=== PATIENT | female | born 1985 | race Caucasian/White ===

== ENCOUNTER 2022-02-16 23:03 | Observation (INO) ==
[2022-02-16] MEDS ORDERED: IOPAMIDOL 100 ML BOTTLE IV ONE (23:04)
[2022-02-16] MEDS ORDERED: 0.9 % SODIUM CHLORIDE 1,000 ML IV ONE (23:06)
--- NOTE | 2022-02-16 23:13 | Emergency Department Note ---
Female Urogenital HPI General Chief complaint: Flank Pain Stated complaint: flank pain Time Seen by Provider: 02/16/22 23:06 Source: patient Mode of arrival: ambulatory Limitations: no limitations History of Present Illness HPI Narrative: Narrative: Patient presents ED with complaints of left flank pain abdomen worsening x4 days. Patient rates pain 8/10. She reports associated fever chills and pain rating to her left groin area. Patient denies dysuria, hematuria, urinary frequency, diarrhea, constipation, melena, medic easier, shortness of breath, cough, body aches, abdominal pain. She denies any [id number] medication. She reports a history of kidney stones. She denies any relieving or aggravating factors. Related Data Home Medications Medication Instructions Recorded Confirmed Elvinsin 09/04/21 Allergies Allergy/AdvReac Type Severity Reaction Status Date / Time No Known Drug Allergies Allergy Verified 08/08/21 08:32 Review of Systems ROS ROS Narrative: Narrative: All systems ED: reviewed and negative except as stated. [facility] Narrative Patient History Narrative: Narrative: Medical/Surgical/Family History All Active Problems (Updated 02/17/22 @ 00:33 by Bebo Cobos DO) Vaginal bleeding (Acute) Menometrorrhagia (Acute) UTI (urinary tract infection) (Acute) Viral upper respiratory tract infection (Acute) Asthma (Acute) (Acute) Low back strain (Acute) Left against medical advice (Acute) Acute respiratory infection (Acute) Head injury, acute, without loss of consciousness (Acute) MRSA cellulitis (Acute) Acute flank pain (Acute) state, incidental (Acute) Flu (Acute) Acute hypokalemia (Acute) Sepsis (Acute) Pyelonephritis (Acute) Medical History (Updated 02/17/22 @ 00:33 by Bebo Cobos DO) Menometrorrhagia Vaginal bleeding Social History Smoking Status: Former smoker Exam Narrative Narrative: Narrative: General Limitations: no limitations General appearance: Present alert Respiratory Respiratory: Present normal lung sounds bilaterally; Absent respiratory distress Cardiovascular Cardiovascular: Present regular rate and normal rhythm Adbominal Abdominal: Present soft and tenderness (left llq) Back Back: Present CVA tenderness (L); Absent CVA tenderness (R) Neurological Neurological: Present oriented X3 and normal gait Psychiatric Psychiatric: Present normal affect and normal mood Skin Skin: Present warm (WNL), dry and intact Course Course Course Narrative: Patient was evaluated for complaints of left. Urine was negative. UA was obtained that showed that she had a pretty significant UTI. Patient's pulse was elevated at 93 and she also had a fever. Labs also she had elevated white cell count. Lactic acid was within normal limits. Patient does meet sepsis criteria. 2 bags of IV fluids Rocephin. Labs also show that she was hypokalemic. Patient does meet. Case was discussed with hospitalist who has agreed to admit the patient. Consultations Consultation #1: Case discussed with hospitalist who is graciously accepted patient for admission with sepsis secondary to pyelonephritis Time: 12:40 Vital Signs Vital signs: Vital Signs Temperature 100.6 F H 02/16/22 23:04 Pulse Rate 96 H 02/16/22 23:04 Respiratory Rate 17 02/16/22 23:04 Blood Pressure 104/70 02/16/22 23:04 Pulse Oximetry (%) 96 02/16/22 23:04 Temperature 100.6 F H 02/16/22 23:04 Pulse Rate 93 H 02/17/22 00:25 Respiratory Rate 17 02/16/22 23:04 Blood Pressure 115/62 02/16/22 23:31 Pulse Oximetry (%) 97 02/17/22 00:25 MDM MDM Narrative Medical decision making narrative: Narrative: Differential Diagnosis Differential Diagnosis: kidney stones, pyelonephritis, UTI Lab Data Lab results reviewed: Yes I reviewed the patient's lab results. Result diagrams: 02/16/22 23:20 02/16/22 23:20 Labs: Lab Results 02/16/22 02/16/22 02/16/22 Range/Units 23:18 23:20 23:20 WBC 14.8 H (4.5-11.0) K/mcL RBC 4.30 (3.59-5.38) M/mcL Hgb 11.1 L (11.2-15.7) g/dL Hct 36.3 (34.1-44.9) % POC Hct (36-48) MCV 84.4 (80.0-100.0) fL MCH 25.8 L (26.0-34.0) pg MCHC 30.6 L (31.0-36.0) g/dL RDW 14.6 H (11.5-14.5) % Plt Count 210 (140-440) K/mcL MPV 9.7 (7.4-10.4) fL Neut % (Auto) 90.1 H (38.0-78.0) % Lymph % (Auto) 3.4 L (15.5-49.0) % [place] % (Auto) 6.2 (1.0-12.0) % Eos % (Auto) 0.1 (0.0-7.0) % Baso % (Auto) 0.2 (0.0-2.0) % Lymph # (Auto) 0.50 L (1.50-4.80) K/mcL [place] # (Auto) 0.92 H (0.10-0.90) K/mcL Eos # (Auto) 0.01 (0.00-0.70) K/mcL Baso # (Auto) 0.03 (0.00-0.30) K/mcL Absolute Neutrophils 13.31 H (1.80-8.00) K/mcL POC Sodium (133-145) Sodium 133 (133-145) mmol/L POC Potassium (3.3-5.1) Potassium 3.1 L (3.3-5.1) mmol/L POC Chloride (96-108) Chloride 99 (96-108) mmol/L Carbon Dioxide 24 (22-30) mmol/L POC Total CO2 (22-30) Anion Gap 10.0 (8.0-16.0) POC BUN (6-20) BUN 13 (6-20) mg/dL Creatinine 0.8 (0.6-1.1) mg/dL POC Creatinine (0.6-1.2) GFR Calculation 94 Glucose 129 H (70-105) mg/dL POC Glucose (70-105) Calcium 8.7 (8.6-10.4) mg/dL POC WB Ioniz Calcium (1.16-1.32) Total Bilirubin 0.4 (0.1-1.0) mg/dL AST 20 (<32) U/L ALT 14 (<40) U/L Alkaline Phosphatase 95 (39-117) U/L Total Protein 6.7 (5.9-8.4) gm/dL Albumin 3.5 (3.2-5.2) gm/dL Globulin 3.2 (2.2-3.7) gm/dL Albumin/Globulin Ratio 1.1 (1.0-2.3) Urine Color Yellow Urine Appearance Cloudy A (Clear) Urine pH 5.0 (5.0-9.0) Ur Specific [place] 1.026 (1.000-1.035) Urine Protein 100 A (Negative) mg/dL Urine Glucose (UA) 50 A (Negative) mg/dL Urine Ketones 5 A (Negative) mg/dL Urine Occult Blood Negative (Negative) mg/dL Urine Nitrate Pos A (Negative) Urine Bilirubin Negative (Negative) mg/dL Urine Urobilinogen Negative mg/dL Ur Leukocyte Esterase 500 A (Negative) /uL Urine RBC 7 H (0-3) /hpf Urine WBC > 182 H (0-4) /hpf Ur Squamous Epith Cells 4 (0-4) /hpf Urine Bacteria None (0) /hpf Urine Mucus Few A (None) /hpf Ur Culture Indicated? yes 02/16/22 Range/Units 23:28 WBC (4.5-11.0) K/mcL RBC (3.59-5.38) M/mcL Hgb (11.2-15.7) g/dL Hct (34.1-44.9) % POC Hct 36.0 (36-48) MCV (80.0-100.0) fL MCH (26.0-34.0) pg MCHC (31.0-36.0) g/dL RDW (11.5-14.5) % Plt Count (140-440) K/mcL MPV (7.4-10.4) fL Neut % (Auto) (38.0-78.0) % Lymph % (Auto) (15.5-49.0) % [place] % (Auto) (1.0-12.0) % Eos % (Auto) (0.0-7.0) % Baso % (Auto) (0.0-2.0) % Lymph # (Auto) (1.50-4.80) K/mcL [place] # (Auto) (0.10-0.90) K/mcL Eos # (Auto) (0.00-0.70) K/mcL Baso # (Auto) (0.00-0.30) K/mcL Absolute Neutrophils (1.80-8.00) K/mcL POC Sodium 138 (133-145) Sodium (133-145) mmol/L POC Potassium 3.1 L (3.3-5.1) Potassium (3.3-5.1) mmol/L POC Chloride 100 (96-108) Chloride (96-108) mmol/L Carbon Dioxide (22-30) mmol/L POC Total CO2 26.0 (22-30) Anion Gap (8.0-16.0) POC BUN 13 (6-20) BUN (6-20) mg/dL Creatinine (0.6-1.1) mg/dL POC Creatinine 0.9 (0.6-1.2) GFR Calculation Glucose (70-105) mg/dL POC Glucose 133 H (70-105) Calcium (8.6-10.4) mg/dL POC WB Ioniz Calcium 1.17 (1.16-1.32) Total Bilirubin (0.1-1.0) mg/dL AST (<32) U/L ALT (<40) U/L Alkaline Phosphatase (39-117) U/L Total Protein (5.9-8.4) gm/dL Albumin (3.2-5.2) gm/dL Globulin (2.2-3.7) gm/dL Albumin/Globulin Ratio (1.0-2.3) Urine Color Urine Appearance (Clear) Urine pH (5.0-9.0) Ur Specific [place] (1.000-1.035) Urine Protein (Negative) mg/dL Urine Glucose (UA) (Negative) mg/dL Urine Ketones (Negative) mg/dL Urine Occult Blood (Negative) mg/dL Urine Nitrate (Negative) Urine Bilirubin (Negative) mg/dL Urine Urobilinogen mg/dL Ur Leukocyte Esterase (Negative) /uL Urine RBC (0-3) /hpf Urine WBC (0-4) /hpf Ur Squamous Epith Cells (0-4) /hpf Urine Bacteria (0) /hpf Urine Mucus (None) /hpf Ur Culture Indicated? ED POC Tests ED POC Tests: HCG POC Results Negative Core Measures AMI Core Measures Followed: Yes Discharge Plan Patient/Caregiver Discharge Instructions Pt seen by SPACECRAFT SYSTEMS ENGINEER/PA only: No Clinical Impression: Sepsis, Acute hypokalemia, Pyelonephritis Activity: resume usual activities as tolerated Patient Disposition: Xfer As Inpt ([facility]) Condition: Good Follow up with: No,PCP [Primary Care Provider] - Prescriptions: No Action Robitussin 0RF
[2022-02-16] MEDS ORDERED: KETOROLAC 30 MG/ML VIAL IV ONE (23:28)
[2022-02-16 23:32] LABS: POC Calcium, Ionized 1.17 (1.16-1.32); POC Creatinine 0.9 (0.6-1.2); POC Potassium 3.1 (3.3-5.1)
[2022-02-17 00:02] LABS: Basophils # (Auto) 0.03 K/mcL (0.00-0.30); Basophils % (Auto) 0.2 % (0.0-2.0); Eosinophils # (Auto) 0.01 K/mcL (0.00-0.70); Eosinophils % (Auto) 0.1 % (0.0-7.0); Hematocrit 36.3 % (34.1-44.9); Hemoglobin 11.1 g/dL (11.2-15.7); Lymphocytes % (Auto) 3.4 % (15.5-49.0); Mean Cell Volume 84.4 fL (80.0-100.0); Mean Corpuscular HGB Conc 30.6 g/dL (31.0-36.0); Mean Platelet Volume 9.7 fL (7.4-10.4); Monocytes # (Auto) 0.92 K/mcL (0.10-0.90); Monocytes % (Auto) 6.2 % (1.0-12.0); Neutrophils % (Auto) 90.1 % (38.0-78.0); Platelet Count 210 K/mcL (140-440); Red Cell Distribution Width 14.6 % (11.5-14.5); WBC 14.8 K/mcL (4.5-11.0)
[2022-02-17 00:15] LABS: Appearance,Urine CLOUDY (Clear); Bilirubin,Urine Negative (Negative); Color,Urine Yellow; Culture Indicated,Urine yes; Glucose,Urine (UA) 50 mg/dL (Negative); Ketones,Urine 5 mg/dL (Negative); Leukocyte Esterase,Urine 500 /uL (Negative); Mucus,Urine FEW /hpf; Nitrate,Urine POS (Negative); Protein,Urine 100 mg/dL (Negative); Specific Gravity,Urine 1.026 (1.000-1.035); Urine Blood Negative (Negative); Urine RBC 7 /hpf (0-3); Urine Squamous Epithelial Cell 4 /hpf (0-4); Urine WBC > 182 /hpf (0-4); Urobilinogen,Urine Negative
[2022-02-17] MEDS ORDERED: cefTRIAXone 2 GM in DEXTROSE 5% IN WATER 50 ML IV ONE (00:21)
[2022-02-17] MEDS ORDERED: ONDANSETRON 4 MG/2 ML VIAL IV ONE (00:22)
[2022-02-17] MEDS ORDERED: fentaNYL 100 MCG/2 ML VIAL IV ONE (00:26)
[2022-02-17] MEDS ORDERED: 0.9 % SODIUM CHLORIDE 1,000 ML IV ONE (00:28)
[2022-02-17 00:31] LABS: ALT/SGPT 14 U/L (<40); AST/SGOT 20 U/L (<32); Albumin 3.5 gm/dL (3.2-5.2); Albumin/Globulin Ratio 1.1 (1.0-2.3); Alkaline Phosphatase 95 U/L (39-117); Bilirubin,Total 0.4 mg/dL (0.1-1.0); Blood Urea Nitrogen 13 mg/dL (6-20); Calcium 8.7 mg/dL (8.6-10.4); Carbon Dioxide 24 mmol/L (22-30); Chloride 99 mmol/L (96-108); Globulin 3.2 gm/dL (2.2-3.7); Glomerular Filtration Rate 94; Glucose 129 mg/dL (70-105)
[2022-02-17] MEDS ORDERED: NALOXONE HCL 0.4 MG/ML VIAL IV PRN (00:42)
[2022-02-17] MEDS ORDERED: ACETAMINOPHEN 325 MG TABLET PO PRN (00:42)
[2022-02-17] MEDS: morphine 2 MG/ML VIAL IV PRN ×5 (02:02→23:30)
[2022-02-17] MEDS: ONDANSETRON 4 MG/2 ML VIAL IV PRN ×2 (02:03→16:54)
[2022-02-17] MEDS: 0.9 % SODIUM CHLORIDE 1,000 ML IV SCH ×3 (03:12→20:59)
--- NOTE | 2022-02-17 03:28 | Cat Scan Report ---
CLINICAL INFORMATION: Left flank pain COMPARISON: None. TECHNIQUE: Following enteric contrast, 80 cc of Isovue-370 were injected intravenously, and 60 seconds later, 0.625 mm helical slices were obtained from the mid heart through the subtrochanteric regions. Following reconstruction, 2.5 mm sagittal, coronal and axial reformatted images were processed and reviewed at bone, lung and soft tissue windows. Five minutes later, 0.625 mm helical slices were obtained from the mid heart through the kidneys and viewed at soft tissue windows.The exam was performed using radiation dose optimization techniques including, but not limited to, automated exposure control, adjustment of the mA and/or kV according to patient size and use of iterative reconstruction technique. FINDINGS: The lung bases are clear. No effusions. The visualized heart is grossly normal. Abdominal images show the gallbladder and bile ducts, liver, adrenal glands, spleen, pancreas and aorta, including aortic branches, are normal in size, configuration and attenuation without focal lesion. There is no free air, free fluid or adenopathy. Both kidneys are normal in size position and configuration: The left is 12.2 cm in length and the right is 13 cm in length. There is patchy inhomogeneous attenuation in the left renal parenchyma suggesting pyelonephritis. There is mild thickening of the transitional epithelium in the left upper collecting system is also supportive of infection. Right kidney is entirely unremarkable. Pelvic images show marked diffuse wall thickening of urinary bladder compatible is associated cystitis. The uterus is anteflexed and normal in size spanning 8.8 x 4 cm. Myometrium is inhomogeneous. Both ovaries are normal colon the right is 3.8 x 2.5 cm and the left is 3.6 x 2.5 cm. There is moderate enlargement of the bilateral periuterine and paraovarian venous plexus. Bone windows show chronic bilateral L5-S1 spondylolysis with grade 1 spondylolisthesis and broad disc protrusion. This results in severe bilateral IV foraminal narrowing with L5 nerve root impingement. IMPRESSION: Markedly inhomogeneous left renal parenchymal attenuation with transitional epithelium thickening compatible with pyelonephritis. Marked diffuse wall thickening urinary bladder compatible with associated cystitis. Moderate enlargement of the bilateral paraovarian and periuterine venous plexus. The patient is at risk for pelvic congestion syndrome. 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 This results in severe bilateral IV foraminal narrowing and exiting L5 nerve root impingement. Interpreted and Authenticated by: Laci Langley 02/17/22
[2022-02-17] MEDS ORDERED: MAGNESIUM HYDROXIDE 30 ML ORAL.SUSP PO PRN (07:37)
[2022-02-17] MEDS ORDERED: diphenhydrAMINE 50 MG/ML VIAL IV PRN (07:37)
[2022-02-17] MEDS ORDERED: PROCHLORPERAZINE 10 MG/2 ML VIAL IV PRN (07:37)
[2022-02-17] MEDS ORDERED: ALBUTEROL SULFATE 2.5 MG/3 ML NEBULIZER NEB PRN (07:37)
[2022-02-17] MEDS ORDERED: ONDANSETRON 4 MG/2 ML VIAL IV PRN (07:37)
[2022-02-17] MEDS ORDERED: hydrALAZINE 20 MG/ML VIAL IV PRN (07:37)
[2022-02-17] MEDS ORDERED: MELATONIN 3 MG TABLET PO PRN (07:37)
[2022-02-17] MEDS ORDERED: traZODone HCL 50 MG TABLET PO PRN (07:37)
[2022-02-17] MEDS: HYDROcodone/APAP 5/325MG TABLET PO PRN ×4 (07:42→22:16)
[2022-02-17] MEDS ORDERED: cefTRIAXone 2 GM in DEXTROSE 5% IN WATER 50 ML IV SCH (08:00)
--- NOTE | 2022-02-17 09:13 | Internal Med History&Physical ---
HPI History of Present Illness Patient information: Note initiated : 02/17/22 at 9:12 am Service Date, if different from initiated Date: [] Patient: Mary Kincaid a 36 y/o F admitted on 02/17/22 for flank pain. Chief Complaint: [] History of present illness: Ms. Kincaid is a 36 year old F 36-year-old female presented to the ED with a 4 days of abdominal pain and left flank pain worsening and associated with a fever chills and radiating pain to the left groin area patient denied any increasing frequency of diarrhea or any abdominal symptoms. She does have dysuria patient also reported history of renal stones in the past and previous UTI. Her urine test was negative her urine analysis showing evidence for UTI and underwent CT scan which showing evidence of pyelonephritis. Her potassium was also low and ordered replacement Review of systems Constitutional: Chills and fever Eyes: no vision changes or pain Cardiovascular: no chest pain, no palpitations Respiratory: no cough or dyspnea Gastrointestinal: Please see HPI Genitourinary: Please see HPI Musculoskeletal: no arthralgia or myalgia Integumentary: no skin lesion or wound Neurological: no focal weakness or numbness Psychiatric: no anxiety or depression Physical exam Head: No bruises, normal-appearing nontraumatic Eyes: normal appearance, no scleral icterus. Neck: full ROM Respiratory: no respiratory distress. Cardiovascular: normal rate and rhythm, S1, S2. GI/Abdominal: Renal angle tenderness left Extremities: full range of motion, nontender. Neurological: CN II-XII intact, intact motor, intact sensation. Psychiatric: normal mood. Skin: warm, normal color PFSH PFSH All Active Problems (Updated 02/17/22 @ 00:33 by Bebo Cobos DO) Vaginal bleeding (Acute) Menometrorrhagia (Acute) UTI (urinary tract infection) (Acute) Viral upper respiratory tract infection (Acute) Asthma (Acute) (Acute) Low back strain (Acute) Left against medical advice (Acute) Acute respiratory infection (Acute) Head injury, acute, without loss of consciousness (Acute) MRSA cellulitis (Acute) Acute flank pain (Acute) state, incidental (Acute) Flu (Acute) Acute hypokalemia (Acute) Sepsis (Acute) Pyelonephritis (Acute) Medical History (Updated 02/17/22 @ 00:33 by Bebo Cobos DO) Menometrorrhagia Vaginal bleeding MEDS/ALLERGIES Home Medications and Allergies Home Medications Medication Instructions Recorded Confirmed Type No Known Home Meds 02/17/22 02/17/22 History Allergies Allergy/AdvReac Type Severity Reaction Status Date / Time No Known Drug Allergies Allergy Verified 08/08/21 08:32 EXAM Constitutional Vitals: Temp Pulse Resp BP Pulse Ox 97.7 F 79 12 107/64 95 02/17/22 08:00 02/17/22 08:00 02/17/22 08:00 02/17/22 08:00 02/17/22 08:00 DATA Data Completed and Pending Labs: Labs from last 24 hours 02/17/22 02/16/22 02/16/22 00:33 23:28 23:20 WBC RBC Hgb Hct POC Hct 36.0 MCV MCH MCHC RDW Plt Count MPV Neut % (Auto) Lymph % (Auto) [place] % (Auto) Eos % (Auto) Baso % (Auto) Lymph # (Auto) [place] # (Auto) Eos # (Auto) Baso # (Auto) Absolute Neutrophils POC VBG pH 7.42 POC VBG pCO2 at Temp 37.8 L POC VBG pO2 41 H POC VBG HCO3 24.7 POC VBG Total CO2 26.0 POC Venous O2 Sat 78.0 H POC VBG Base Excess 0 VBG Lactic Acid 1.9 POC Sodium 138 Sodium POC Potassium 3.1 L Potassium POC Chloride 100 Chloride Carbon Dioxide POC Total CO2 26.0 Anion Gap POC BUN 13 BUN Creatinine POC Creatinine 0.9 GFR Calculation Glucose POC Glucose 133 H POC Venous Lactate 0.7 Calcium POC WB Ioniz Calcium 1.17 Total Bilirubin AST ALT Alkaline Phosphatase Total Protein Albumin Globulin Albumin/Globulin Ratio Urine Color Urine Appearance Urine pH Ur Specific [place] Urine Protein Urine Glucose (UA) Urine Ketones Urine Occult Blood Urine Nitrate Urine Bilirubin Urine Urobilinogen Ur Leukocyte Esterase Urine RBC Urine WBC Ur Squamous Epith Cells Urine Bacteria Urine Mucus Ur Culture Indicated? 02/16/22 02/16/22 02/16/22 23:20 23:20 23:18 WBC 14.8 H RBC 4.30 Hgb 11.1 L Hct 36.3 POC Hct MCV 84.4 MCH 25.8 L MCHC 30.6 L RDW 14.6 H Plt Count 210 MPV 9.7 Neut % (Auto) 90.1 H Lymph % (Auto) 3.4 L [place] % (Auto) 6.2 Eos % (Auto) 0.1 Baso % (Auto) 0.2 Lymph # (Auto) 0.50 L [place] # (Auto) 0.92 H Eos # (Auto) 0.01 Baso # (Auto) 0.03 Absolute Neutrophils 13.31 H POC VBG pH POC VBG pCO2 at Temp POC VBG pO2 POC VBG HCO3 POC VBG Total CO2 POC Venous O2 Sat POC VBG Base Excess VBG Lactic Acid POC Sodium Sodium 133 POC Potassium Potassium 3.1 L POC Chloride Chloride 99 Carbon Dioxide 24 POC Total CO2 Anion Gap 10.0 POC BUN BUN 13 Creatinine 0.8 POC Creatinine GFR Calculation 94 Glucose 129 H POC Glucose POC Venous Lactate Calcium 8.7 POC WB Ioniz Calcium Total Bilirubin 0.4 AST 20 ALT 14 Alkaline Phosphatase 95 Total Protein 6.7 Albumin 3.5 Globulin 3.2 Albumin/Globulin Ratio 1.1 Urine Color Yellow Urine Appearance Cloudy A Urine pH 5.0 Ur Specific [place] 1.026 Urine Protein 100 A Urine Glucose (UA) 50 A Urine Ketones 5 A Urine Occult Blood Negative Urine Nitrate Pos A Urine Bilirubin Negative Urine Urobilinogen Negative Ur Leukocyte Esterase 500 A Urine RBC 7 H Urine WBC > 182 H Ur Squamous Epith Cells 4 Urine Bacteria None Urine Mucus Few A Ur Culture Indicated? yes A/P Narrative A/P Narrative: Sepsis acute pyelonephritis Urine analysis showing orders for UTI and CT scan of the abdomen showing evidence of pyelonephritis Plan Pending urine culture Started on ceftriaxone 2 g every 24 Pain management with the p.o. oxycodone and Toradol No evidence of obstruction Monitor renal function Hypokalemia Probably due to nutritional Ordered replacement Risk of pelvic congestion syndrome CT scan mention pelvic plexus and risk of congestion syndrome needs to follow-up with outpatient SALES STOCK ASSOCIATE DVT prophylaxis-subcu Lovenox CODE STATUS-full code Time Spent With Patient Time: Total time spent is greater than 50% in coordination of care (as documented) at patient's floor/unit and/or counseling patient: Total time spent with greater than 50% in coordination of care (as documented) at patient's floor/unit and/or counseling patient:: 50 - 70 minutes QUALITY VTE Deep Vein Thrombosis/Pulmonary Embolism Present on Admission: No
[2022-02-17] MEDS: traMADol 50 MG TABLET PO PRN (11:10)
[2022-02-17] MEDS: DOCUSATE SODIUM 100 MG CAPSULE PO SCH ×2 (11:11→20:59)
[2022-02-17] MEDS: ENOXAPARIN 40 MG/0.4 ML SYRINGE SQ SCH (11:12)
[2022-02-17] MEDS: POTASSIUM CHLORIDE 20 MEQ TABLET PO SCH ×2 (11:12→17:56)
[2022-02-17] MEDS: PIPERACILLIN SODIUM/TAZOBACTAM 3.375 GM in DEXTROSE 5% IN WATER 50 ML IV SCH ×3 (14:26→23:30)
[2022-02-17] MEDS: KETOROLAC 30 MG/ML VIAL IV PRN ×2 (14:26→20:58)
[2022-02-17] MEDS: 0.9 % SODIUM CHLORIDE 10 ML SYRINGE IV SCH ×2 (14:27→21:00)
[2022-02-17] MEDS ORDERED: SENNOSIDES 1 TABLET PO SCH (21:00)
[2022-02-18] MEDS: 0.9 % SODIUM CHLORIDE 1,000 ML IV SCH ×2 (00:31→08:58)
[2022-02-18] MEDS: HYDROcodone/APAP 5/325MG TABLET PO PRN ×3 (02:08→10:13)
[2022-02-18] MEDS: KETOROLAC 30 MG/ML VIAL IV PRN ×2 (05:36→11:32)
[2022-02-18] MEDS: PIPERACILLIN SODIUM/TAZOBACTAM 3.375 GM in DEXTROSE 5% IN WATER 50 ML IV SCH ×2 (05:37→11:27)
[2022-02-18] MEDS: 0.9 % SODIUM CHLORIDE 10 ML SYRINGE IV SCH (05:37)
[2022-02-18] MEDS ORDERED: PANTOPRAZOLE 40 MG TABLET PO SCH (07:30)
[2022-02-18] MEDS: ENOXAPARIN 40 MG/0.4 ML SYRINGE SQ SCH (08:57)
[2022-02-18] MEDS: DOCUSATE SODIUM 100 MG CAPSULE PO SCH (08:57)
[2022-02-18] MEDS: POTASSIUM CHLORIDE 20 MEQ TABLET PO SCH (08:57)
[2022-02-18] MEDS: traMADol 50 MG TABLET PO PRN (09:05)
[2022-02-18] MEDS ORDERED: POTASSIUM CHLORIDE 20 MEQ TABLET PO SCH (11:15)
--- NOTE | 2022-02-18 11:22 | Discharge Summary ---
Discharge Provider Provider IMPORTANT FOLLOW-UP INFORMATION FOR PCP: Patient information: Note initiated : 02/18/22 at 11:21 am Service Date, if different from initiated Date: [] Patient: Mary Kincaid 36 y/o F admitted on 02/17/22 for flank pain. Chief Complaint: [] Date of admission: 02/17/22 01:41 Discharge date: 02/18/22 Primary care physician: PCP No Consults: 02/17/22 Consult to Physician [CONS] Stat Comment: Consulting Provider: Lupe Beth Reason For Exam: Physician to Consult COURSE Hospital Course Hospital course: 36-year-old female presented to the ED with a 4 days of abdominal pain and left flank pain worsening and associated with a fever chills and radiating pain to the left groin area patient denied any increasing frequency of diarrhea or any abdominal symptoms. She does have dysuria patient also reported history of renal stones in the past and previous UTI. Her urine test was negative her urine analysis showing evidence for UTI and underwent CT scan which showing evidence of pyelonephritis. Her potassium was also low and ordered replacement 02/18 Patient pain improved she was trying to leave AMA yesterday and then came back after 25 minutes This morning patient demanding to leave I discussed with the patient and she wanted to be discharged Her urine culture is growing gram-negative rods most likely E. coli based on her previous culture report I explained to the patient and we will discharge her with home antibiotic but she needs to follow-up with a primary care provider to get the final culture report on making sure the antibiotic is working for her Review of systems Constitutional: Chills and fever Eyes: no vision changes or pain Cardiovascular: no chest pain, no palpitations Respiratory: no cough or dyspnea Gastrointestinal: Please see HPI Genitourinary: Please see HPI Musculoskeletal: no arthralgia or myalgia Integumentary: no skin lesion or wound Neurological: no focal weakness or numbness Psychiatric: no anxiety or depression Physical exam Head: No bruises, normal-appearing nontraumatic Eyes: normal appearance, no scleral icterus. Neck: full ROM Respiratory: no respiratory distress. Cardiovascular: normal rate and rhythm, S1, S2. GI/Abdominal: Renal angle tenderness left Extremities: full range of motion, nontender. Neurological: CN II-XII intact, intact motor, intact sensation. Psychiatric: normal mood. Skin: warm, normal color acute pyelonephritis Urine analysis showing orders for UTI and CT scan of the abdomen showing evidence of pyelonephritis Plan Urine culture growing gram-negative rods Started on ceftriaxone 2 g every 24 and received 2 doses Patient wanted to be discharged home otherwise she is threatening to leave AMA Advised the patient to follow-up with the primary care provider in next 5 days to get the final culture report Will discharge around p.o. cefpodoxime for 7 days Hypokalemia Replaced Risk of pelvic congestion syndrome CT scan mention pelvic plexus and risk of congestion syndrome needs to follow-up with outpatient HELPER/DRIVER DVT prophylaxis-subcu Lovenox CODE STATUS-full code Discharge diagnosis: acute peylonephritis Time Spent with Patient Time attestation: Total time spent providing and/or coordinating discharge services: Time spent: Greater than 30 minutes EXAM Constitutional Vitals: Temp Pulse Resp BP Pulse Ox 96.8 F L 70 18 122/85 95 02/18/22 11:15 02/18/22 11:15 02/18/22 11:15 02/18/22 11:15 02/18/22 11:15 Discharge Data Data Completed and Pending Labs on day of discharge: Preliminary micro results at discharge 02/16/22 23:18 Urine Culture - Preliminary Urine - Clean Void Mid-Stream Gram negative bacillus Discharge Plan Patient/Caregiver Discharge Instructions Activity: increase activity as tolerated and resume usual activities as tolerated Instructions: Urinary Tract Infection in Women (DC) Activity Restrictions/Additional Instructions: follow up with pcp in 5 days to get final urine culture results Prescriptions: New cefpodoxime 200 mg tablet 200 mg PO BID Qty: 14 0RF Rx Instructions: must administer with a meal/food hydrocodone-acetaminophen 5-325 mg tablet 1 tab PO Q8H PRN (Reason: pain) Qty: 20 0RF potassium chloride 20 mEq tablet extended release 40 meq PO QDAY Qty: 10 0RF Follow Up Plan Follow up with: No,PCP [Primary Care Provider] - Patient Disposition: Home, Self-Care Prognosis: Good Rehab Potential: Fair I certify that the patient requires SNF services: No Overall status at discharge: patient is progressing back to baseline Discharge Orders: Discharge Order (Routine); Ordered 02/18/22 Ordered By: Lupe HODGES VTE Deep Vein Thrombosis/Pulmonary Embolism Present on Admission: No
== END 2022-02-18 12:25 | disposition home or self-care (01) ==
LOC: MEDSUR 23:03 → ED 23:03 → MEDSUR 02-17 01:41
PROVIDERS: ADMIT Internal Medicine; ATTEND Internal Medicine